=== PATIENT | female | born 1960 | race Caucasian/White ===

== ENCOUNTER 2022-04-17 08:37 | Day surgery (SDC) | payer BC ==
[2022-04-17] MEDS ORDERED: Sodium Chloride 0.9% 10 ML Syringe FLUSH PRN (08:45)
[2022-04-17] MEDS ORDERED: Propofol 200 MG/20 ML SDV ONE (08:57)
[2022-04-17] MEDS: Lactated Ringers 1,000 ML IV SCH (09:11)
== END 2022-04-17 11:27 | disposition home or self-care (01) ==
LOC: KA.SDS 08:37
PROVIDERS: ATTEND Surgery
DX: Z12.11 Encounter for screening for malignant neoplasm of colon (principal); I10 Essential (primary) hypertension; F41.9 Anxiety disorder, unspecified; A35 Other tetanus; Z79.899 Other long term (current) drug therapy; Z80.0 Family history of malignant neoplasm of digestive organs
CPT/HCPCS: 00812; J2704; J7120